=== PATIENT | female | born 1950 | race African-American/Black ===

== ENCOUNTER → 2017-05-08 | Outpatient (CLI) | payer MEDICARE ==
--- NOTE | 2017-05-09 11:26 | MM ---
Reason for exam: screening (asymptomatic). Last mammogram was performed 1 year and 2 months ago. History: Patient is postmenopausal and had first child at age 34. Physical Findings: A clinical breast exam by your physician is recommended on an annual basis and results should be correlated with mammographic findings. MG 3D Screening Mammo W/Cad Bilateral CC and MLO view(s) were taken. Prior study comparison: March 22, 2016, bilateral MG 3d screening mammo w/cad. January 28, 2015, bilateral MG screening mammo w CAD. There are scattered fibroglandular densities. Finding: There is a 9 mm mass in the upper outer quadrant, middle depth of the left breast. ASSESSMENT: Incomplete: need additional imaging evaluation, BI-RAD 0 RECOMMENDATION: Special view mammogram of the left breast. If lesion persists on supplemental views, image directed ultrasound is recommended. [facility] will attempt to contact patient to return for supplemental views and ultrasound if indicated.
== END | disposition home or self-care (01) ==
LOC: RADMAMWWP 10:10
PROVIDERS: ATTEND Internal Medicine
DX: Z12.31 Encounter for screening mammogram for malignant neoplasm of breast (principal)
CPT/HCPCS: 77063; G0202

== ENCOUNTER → 2017-05-15 | Outpatient (CLI) | payer MEDICARE ==
--- NOTE | 2017-05-21 09:26 | MM ---
Reason for exam: additional evaluation requested from abnormal screening. Last mammogram was performed less than 1 month ago. History: Patient is postmenopausal and had first child at age 34. Physical Findings: Nurse did not find any significant physical abnormalities on exam. MG 3D Work Up W/Cad LT CC and MLO view(s) were taken of the left breast. Prior study comparison: May 08, 2017, bilateral MG 3d screening mammo w/cad. March 22, 2016, bilateral MG 3d screening mammo w/cad. The breast tissue is heterogeneously dense. This may lower the sensitivity of mammography. Finding: There is a persistent 5 mm transverse, equal density (isodense), circumscribed oval mass located 7 cm from the nipple in the upper outer quadrant, middle position of the left breast partially disperses. These results were verbally communicated with the patient and result sheet given to the patient on 05/15/17. ASSESSMENT: Probably benign, BI-RAD 3 RECOMMENDATION: Ultrasound of the left breast.
--- NOTE | 2017-05-21 09:29 | USB ---
Reason for exam: additional evaluation requested from abnormal screening. History: Patient is postmenopausal and had first child at age 34. US Breast Workup Limited LT Left breast ultrasound demonstrates no cystic or solid lesion seen. These results were verbally communicated with the patient and result sheet given to the patient on 05/15/17. ASSESSMENT: Negative, BI-RAD 1 RECOMMENDATION: Surgical consultation and stereotactic core biopsy of the left breast. (new left breast nodule 12 o'clock) Called Dr. Cardona with mammographic findings and will need follow up appointment after biopsy. Left biopsy scheduled for 05/22/17 at 2:20. PRELIMINARY REPORT CALLED AND FAXED TO DR. CARDONA ON 05/21/17 /TMP.
== END | disposition home or self-care (01) ==
LOC: RADMAMWWP 08:11
PROVIDERS: ATTEND Internal Medicine
DX: R92.8 Other abnormal and inconclusive findings on diagnostic imaging of breast (principal)
CPT/HCPCS: 76642; G0206; G0279

== ENCOUNTER 2017-05-17 11:01 | Day surgery (SDC) | payer MEDICARE ==
[2017-05-15 10:22] VITALS: BMI 30.9
[~2017-05-17 11:01] MED LIST: LACTATED RINGERS 1,000 ML IV SCH
[2017-05-17 12:55] VITALS: TEMP 98.9
[2017-05-17] MEDS ORDERED: LIDOCAINE 1% 20 ML VIAL (10MG/ML) FOR IV START INTRADERMA ONE (13:08)
[2017-05-17] MEDS ORDERED: PROPOFOL 10 MG/ML 20 ML VIAL IV ONE (13:48)
--- NOTE | 2017-05-17 14:05 | P.PCN ---
Date of Procedure: 05/17/17 Preoperative Diagnosis: Postoperative Diagnosis: Procedure(s) Performed: BRIEF HISTORY: Patient is a 67-year-old pleasant female, scheduled for an elective colonoscopy as a part of screening for colorectal neoplasia. PROCEDURE PERFORMED: Colonoscopy with snare polypectomy.. PREOPERATIVE DIAGNOSIS: Screening for colon cancer. IV sedation per Anesthesia. PROCEDURE: After informed consent was obtained, the patient, was brought into the endoscopy unit. IV sedation was administered by Anesthesia under continuous monitoring. Digital rectal examination was normal. Initially the Olympus CF- 160 flexible video colonoscope was then inserted in the rectum, gradually advanced into the cecum without any difficulty. Careful examination was performed as the scope was gradually being withdrawn. Ileocecal valve and the appendiceal orifice were visualized and appeared normal. Prep was excellent. Mucosa of the cecum, ascending colon, transverse colon, descending colon, sigmoid colon, and rectum appeared normal. In the distal sigmoid colon there was a 1 segment of polyp removed by snare polypectomy. Retroflexion was performed in the rectum and no lesions were seen. The patient tolerated the procedure well. IMPRESSION: 1 cm distal sigmoid colon polyp status post polypectomy. Rest of the colon appeared normal. RECOMMENDATIONS: Findings of this examination were discussed with the patient as well as her family. She was advised to follow with the biopsy results. If the biopsy shows a tubular adenoma she can have a repeat colonoscopy in 5 years. Implants: Indications for Procedure: Operative Findings: Description of Procedure:
[2017-05-17 14:27] VITALS: BP 102/60; PULSE 67; RESP 16
== END 2017-05-17 14:51 | disposition home or self-care (01) ==
LOC: ORWHC2ENDO 11:01
PROVIDERS: ATTEND Internal Medicine Gastroenterology
DX: Z12.11 Encounter for screening for malignant neoplasm of colon (principal); K63.5 Polyp of colon; I10 Essential (primary) hypertension; Z88.1 Allergy status to other antibiotic agents; Z88.0 Allergy status to penicillin; Z88.6 Allergy status to analgesic agent
CPT/HCPCS: 88305; 45385; J2704

== ENCOUNTER → 2017-05-22 | Day surgery (SDC) | payer MEDICARE ==
[2017-05-22 13:09] VITALS: RESP 16; BMI 30.9
[2017-05-22 14:49] VITALS: BP 120/78; PULSE 75; TEMP 16
--- NOTE | 2017-05-22 15:27 | MM ---
Stereotactic Mammotome core biopsy left breast. HISTORY: Left breast density The density in question within the left breast were targeted by the undersigned. Procedure was performed by the undersigned. Informed consent was obtained and all of the patients questions were answered. The standard sterile technique was utilized and appropriate local anesthesia was obtained with 1% lidocaine. Mammotome probe was advanced and multiple core samples were obtained and sent to pathology for interpretation. Microclip marker was deployed at the site of biopsy. Post procedural mammogram demonstrates appropriate deployment of radiopaque clip marker. The patient tolerated the procedure well and left the department in stable condition. Pathology results are pending. IMPRESSION: Successful stereotactic core biopsy left breast with pathology results pending. Pathology Results: Malignant BREAST, LEFT, SITE A, CORE BIOPSY: LOW GRADE DCIS AND DETACHED FRAGMENTS OF PAPILLOMA WITH ATYPIA, FAVOR PAPILLOMA INVOLVED BY DCIS. BACKGROUND FIBROCYSTIC CHANGES INCLUDING FIBROADENOMA FORMATION/FIBROADENOMATOID HYPERPLASIA AND FOCAL ATYPICAL DUCTAL HYPERPLASIA (ADH). SEE SURGICAL PATHOLOGY CANCER CASE SUMMARY AND COMMENT. Recommendation Surgical consult of the left breast. GÓMEZ
== END ==
LOC: RADMAMWWP 12:35
PROVIDERS: ATTEND Internal Medicine
DX: D24.2 Benign neoplasm of left breast (principal); R92.8 Other abnormal and inconclusive findings on diagnostic imaging of breast
CPT/HCPCS: 88305; 88342; 88341; 19081; A4648; J2001

== ENCOUNTER → 2017-07-01 | Day surgery (SDC) | payer MEDICARE ==
[2017-06-25 14:10] VITALS: BMI 30.9
[~2017-07-01] MED LIST changes: +ALPRAZolam 0.25 MG TAB PO ONE; +BUPIVACAINE (PF) 0.25% 30 ML VIAL SQ ONE; +DEXAMETHASONE SOD PHOSPHATE 10 MG/ML 1 ML VIAL IV ONE; +HEPARIN SODIUM,PORCINE 5,000 UNIT/ML 1 ML VIAL SQ ONE; +HYDROcodone/APAP 5-325MG 1 EACH TAB PO PRN; +HYDROmorphone 0.5 MG/0.5 ML SYRINGE IVP PRN; +LACTATED RINGERS 1,000 ML IV ONE; +LIDOCAINE 1% 20 ML VIAL (10MG/ML) FOR IV START INTRADERMA PRN; +LIDOCAINE 1% INJ 10MG/ML (20 ML MDV) SQ ONE; +MIDAZOLAM 2 MG/2 ML VIAL IV PRN; +MIDAZOLAM 2 MG/2 ML VIAL ONE; +NALOXONE 0.4 MG/ML 1 ML VIAL IV PRN; +ONDANSETRON 4 MG/2 ML VIAL IVP ONE; +PROPOFOL 10 MG/ML 20 ML VIAL IV ONE; +Pre Op ABX Message 1 EACH MISC MISCELLANE ONE; +SCOPOLAMINE 1.5MG/72HR PATCH TRANSDERM ONE; +fentaNYL (PF) 50 MCG/ML 2 ML AMP ONE
[2017-07-01 11:01] VITALS: TEMP 96.8
--- NOTE | 2017-07-01 11:01 | P.OP ---
Date of Procedure: 07/01/17 Procedure(s) Performed: PREOPERATIVE DIAGNOSIS: Left breast cancer POSTOPERATIVE DIAGNOSIS: Same PROCEDURE: Left Breast wire localization lumpectomy with BioSorb placement SURGEON: Abilio EBL: Minimal ANESTHESIA: General COMPLICATIONS: None OPERATIVE PROCEDURE: Patient was placed on the operating room table in the supine position. The wire entrance site was then addressed. This was present at the 2:00 location. A curvilinear incision was made adjacent to the wire entrance site. I followed the wire down into the breast tissue. An adequate lumpectomy specimen then took place around the wire. Margins of 1.5-2 cm worth attempted to be achieved. The inferior margin was somewhat indurated and I did remove an additional new inferior margin. The initial lumpectomy specimen was marked on all 6 sides with the predetermined colors. The new inferior margin was also painted on the new margin inferiorly. A BioSorb 2 x 3 cm was placed in the lumpectomy site and sutured down using interrupted 3-0 Vicryl sutures. The clip was confirmed to be within the lumpectomy specimen by radiology. The subcutaneous tissues were closed using 3-0 Vicryl sutures. The skin was closed using a running 4-0 Monocryl stitch. Steri-Strips and sterile dressings were applied. DISPOSITION: Stable to recovery room
[2017-07-01 11:21] VITALS: RESP 18
[2017-07-01 12:38] VITALS: BP 117/74; PULSE 62
--- NOTE | 2017-07-01 13:01 | MM ---
EXAMINATION TYPE: MG pre op needle loc LT, MG surgical specimen LT DATE OF EXAM: 07/01/2017 COMPARISON: 05/22/2017 CLINICAL HISTORY: Surgical excision of a high-risk lesion in the left breast with request for needle localization. TECHNIQUE: Needle localization with wire placement and surgical excision of area of concern in the left breast. FINDINGS: The procedure of needle localization with wire placement and than surgical excision was explained to the patient. Benefits, alternatives, and risks were discussed. An informed consent was then obtained. The shortest pathway for procedure was chosen. Shortest pathway was CC from above approach. The overlying skin was prepped and draped in usual sterile fashion. Lidocaine buffered with bicarbonate was used as anesthetic into the skin and subcutaneous tissue up to the level of area of concern (biopsy marker clip and density). A 7 cm needle was used. It was placed via a CC from above approach under mammographic guidance. Subsequent 90 degrees mammogram show the needle to be in satisfactory position relative to the targeted area. At this point, wire was placed and the needle was withdrawn. The wire was fixed to patient's skin. Images were marked for surgeon. The patient tolerated the procedure well without any immediate complication. The patient was kept in the radiology department for short stay after the procedure and then taken to surgery for surgical excision. Targeted density and biopsy marker clip and wire are identified in specimen mammogram. The patient was kept in hospital for short stay after the procedure and then discharged home in stable condition. IMPRESSION: Successful, uncomplicated needle localization with wire placement and surgical excision of targeted density and biopsy marker clip with incidental note of calcifications in the left breast, full pathology results to follow. Pathology Results: High Risk A. BREAST, LEFT, LUMPECTOMY: FOCAL ATYPICAL DUCTAL HYPERPLASIA (ADH). FIBROCYSTIC CHANGES INCLUDING FIBROADENOMA FORMATION/FIBROADENOMATOID HYPERPLASIA, FIBROSIS, CYSTS, USUAL TYPE DUCTAL HYPERPLASIA AND CALCIFICATIONS. PREVIOUS BIOPSY SITE. NO RESIDUAL DCIS IDENTIFIED. SEE NOTE. B. BREAST, LEFT, NEW INFERIOR MARGIN, EXCISION: BENIGN BREAST WITH FIBROCYSTIC CHANGES INCLUDING FIBROADENOMA FORMATION/FIBROADENOMATOID HYPERPLASIA, FIBROSIS , CYSTS, USUAL TYPE DUCTAL HYPERPLASIA AND APOCRINE METAPLASIA. Recommendation Surgical consult of the left breast. GÓMEZ
== END | disposition home or self-care (01) ==
LOC: OR 06:35
PROVIDERS: ATTEND Surgery
DX: D24.2 Benign neoplasm of left breast (principal); N60.12 Diffuse cystic mastopathy of left breast; N60.82 Other benign mammary dysplasias of left breast; R92.0 Mammographic microcalcification found on diagnostic imaging of breast; E21.3 Hyperparathyroidism, unspecified; K21.9 Gastro-esophageal reflux disease without esophagitis; M19.90 Unspecified osteoarthritis, unspecified site; I10 Essential (primary) hypertension; M41.9 Scoliosis, unspecified; Z79.899 Other long term (current) drug therapy; Z88.6 Allergy status to analgesic agent; Z88.1 Allergy status to other antibiotic agents; Z88.0 Allergy status to penicillin; Z90.710 Acquired absence of both cervix and uterus
CPT/HCPCS: 19301; 19281; 15777; 81025; 88342; 88307; 76098; A4648; J2250; J1644; J1100; J2405; J2001; J3010; J2704

== ENCOUNTER → 2017-09-19 | Outpatient (CLI) | payer MEDICARE ==
--- NOTE | 2017-09-20 07:57 | BD ---
EXAMINATION TYPE: MG DEXA axial skeleton. DATE OF EXAM: 09/19/2017 COMPARISON: NONE CLINICAL HISTORY: Osteopenia. Screening exam. Height: 67 Weight: 197.1 FRAX RISK QUESTIONS: Alcohol (3 or more units per day): no Family History (Parent hip fracture): no Glucocorticoids (More than 3mos): no (Ex: prednisone, prednisolone, methylprednisolone, dexamethasone, and hydrocortisone). History of Fracture in Adulthood: yes Secondary Osteoporosis: 1. Type 1 Diabetes: no 2. Hyperthyroidism: no 3. Menopause before 45: yes 4. Malnutrition: no 5. Chronic liver disease: no Rheumatoid Arthritis: no Current Tobacco Use: no RISK FACTORS HISTORY OF: Hip Fracture (Right/Left): no Spine Fracture: no History of Wrist Fracture: no Surgery to Spine/Hip(right/left)/Wrist (right/left): no Family History of Osteoporosis: no Active: yes Diet low in dairy products/other sources of calcium: yes Postmenopausal woman: age 38 Lost more than 2 inches in height since high school: no Frequent falls: no Poor Health: no Hyperparathyroidism: no Adrenal Insufficiency: no MEDICATIONS: high bp meds, post breast cancer med Additional History: EXAM MEASUREMENTS: Bone mineral densitometry was performed using the [employer]item[employer]her System. Bone mineral density as measured about the Lumbar spine is: ----- L1-L4(G/cm2): 1.079 T Score Values are as follows: ----- L2: -1.4 ----- L3: -1.2 ----- L4: -0.1 ----- L1-L4: -0.8 Bone mineral density has: decreased -1.5 % since study of: 03.22.2016 Bone mineral density about the R hip (g/cm2): 0.836 Bone mineral density about the L hip (g/cm2): 0.772 T Score values are as follows: -----R Neck: -1.5 -----L Neck: -1.9 -----R Total: -1.6 -----L Total: -1.8 Bone mineral density has: increased 1.1 % since study of: 03.22.2016 IMPRESSION: Osteopenia (T Score between -2.5 and -1 ) as noted by T score values both hips and the lumbar spine. There is slightly increased risk of fracture and the patient may be considered for treatment. Re-Screen 2-5 years. NOTE: T-SCORE=SD OF THE YOUNG ADULT MEAN.
== END | disposition home or self-care (01) ==
LOC: RADBDWWP 15:46
PROVIDERS: ATTEND Internal Medicine Hematology & Oncology
DX: C50.412 Malignant neoplasm of upper-outer quadrant of left female breast (principal); M85.851 Other specified disorders of bone density and structure, right thigh; M85.852 Other specified disorders of bone density and structure, left thigh; M85.88 Other specified disorders of bone density and structure, other site; Z79.890 Hormone replacement therapy
CPT/HCPCS: 77080

== ENCOUNTER → 2018-04-28 | Outpatient (CLI) | payer MEDICARE ==
--- NOTE | 2018-04-29 15:08 | MM ---
Reason for exam: additional evaluation requested from prior study. Last mammogram was performed 11 months ago. History: Patient is postmenopausal, has history of breast cancer at age 67, has history of high-risk lesion on a previous biopsy at age 67, and had first child at age 34. High risk MG pre op needle loc LT of the left breast, July 01, 2017. Malignant MG stereo VAD BX LT of the left breast, May 22, 2017. Took estrogen for 5 years beginning at age 39. Physical Findings: Nurse did not find any significant physical abnormalities on exam. MG 3D Diag Mammo W/Cad MIKE Bilateral CC and MLO view(s) were taken. Prior study comparison: May 15, 2017, left breast MG 3d work up w/cad LT. May 08, 2017, bilateral MG 3d screening mammo w/cad. There are scattered fibroglandular densities. There is a mass and clips in the left breast middle position consistent withe known lumpectomy changes at area of prior concern. No new dominant lesion. These results were verbally communicated with the patient and result sheet given to the patient on 04/28/18. ASSESSMENT: Benign, BI-RAD 2 RECOMMENDATION: Follow-up diagnostic mammogram of both breasts in 1 year.
== END | disposition home or self-care (01) ==
LOC: RADMAMWWP 10:12
PROVIDERS: ATTEND Surgery
DX: R92.8 Other abnormal and inconclusive findings on diagnostic imaging of breast (principal); Z85.3 Personal history of malignant neoplasm of breast
CPT/HCPCS: 77066; G0279; 77062

== ENCOUNTER → 2019-03-06 | Outpatient (CLI) | payer MEDICARE ==
--- NOTE | 2019-03-06 18:09 | MR ---
EXAMINATION TYPE: MR brain wo/w con DATE OF EXAM: 03/06/2019 COMPARISON: NONE HISTORY: 68-year-old female with Parageusia TECHNIQUE: Multiplanar, multisequence images of the brain and brainstem were acquired before and aft er administration of 9.5 mL IV Gadavist. Diffusion weighted imaging is performed. FINDINGS: No evidence for acute infarction, hemorrhage, mass, mass effect, midline shift, herniation, effacemen t of basal cisterns, or extra-axial fluid collection. The ventricles and sulci are age-appropriate. Major intracranial flow voids are intact. T2/FLAIR weighted sequences show normal common age-related mild periventricular white white matter br ight signal. Midline structures demonstrate normal morphology. The craniocervical junction is normal . Post contrast images demonstrate no evidence of pathologic enhancement. Dural venous sinuses are pat ent. There is mild pansinus mucosal thickening. The globes appear intact. IMPRESSION: 1. No acute intracranial abnormality seen. Minimal age-related periventricular white matter change. N o enhancing lesions. 2. Mild chronic pansinus disease.
== END | disposition home or self-care (01) ==
LOC: RADMRIMAIN 10:32
PROVIDERS: ATTEND Otolaryngology
DX: R90.89 Other abnormal findings on diagnostic imaging of central nervous system (principal); R43.2 Parageusia
CPT/HCPCS: 70553; A9585

== ENCOUNTER → 2019-05-14 | Outpatient (CLI) | payer MEDICARE ==
--- NOTE | 2019-05-14 09:19 | MM ---
Reason for exam: additional evaluation requested from prior study. Last mammogram was performed 1 year and 1 month ago. History: Patient is postmenopausal, has history of breast cancer at age 67, has history of high-risk lesion on a previous biopsy at age 67, and had first child at age 34. High risk MG pre op needle loc LT of the left breast, July 01, 2017. Malignant MG stereo VAD BX LT of the left breast, May 22, 2017. Took estrogen for 5 years beginning at age 39. Physical Findings: Nurse did not find any significant physical abnormalities on exam. MG 3D Diag Mammo W/Cad MIKE Bilateral CC and MLO view(s) were taken. Prior study comparison: April 28, 2018, bilateral MG 3d diag mammo w/cad MIKE. May 15, 2017, left breast MG 3d work up w/cad LT. The breast tissue is heterogeneously dense. This may lower the sensitivity of mammography. No suspicious abnormality. Left post therapy change. No significant new findings when compared with previous films. These results were verbally communicated with the patient and result sheet given to the patient on 05/14/19. ASSESSMENT: Benign, BI-RAD 2 RECOMMENDATION: Follow-up diagnostic mammogram of both breasts in 1 year.
== END | disposition home or self-care (01) ==
LOC: RADMAMWWP 08:02
PROVIDERS: ATTEND Internal Medicine
DX: R92.8 Other abnormal and inconclusive findings on diagnostic imaging of breast (principal); Z85.3 Personal history of malignant neoplasm of breast
CPT/HCPCS: 77066; G0279; 77062

== ENCOUNTER → 2020-05-19 | Outpatient (CLI) | payer MEDICARE ==
--- NOTE | 2020-05-20 09:44 | MM ---
Reason for exam: additional evaluation requested from prior study. Last mammogram was performed 1 year ago. History: Patient is postmenopausal, has history of breast cancer at age 67, has history of high-risk lesion on a previous biopsy at age 67, and had first child at age 34. High risk MG pre op needle loc LT of the left breast, July 01, 2017. Malignant MG stereo VAD BX LT of the left breast, May 22, 2017. Lumpectomy of the left breast, 2016. Took estrogen for 5 years beginning at age 39. Physical Findings: Nurse did not find any significant physical abnormalities on exam. MG 3D Diag Mammo W/Cad MIKE Bilateral CC and MLO view(s) were taken. XCCL view(s) were taken of the right breast. Prior study comparison: May 14, 2019, bilateral MG 3d diag mammo w/cad MIKE. April 28, 2018, bilateral MG 3d diag mammo w/cad MIKE. The breast tissue is heterogeneously dense. This may lower the sensitivity of mammography. Stable post lumpectomy changes left breast. No significant new findings when compared with previous films. These results were verbally communicated with the patient and result sheet given to the patient on 05/19/20. ASSESSMENT: Benign, BI-RAD 2 RECOMMENDATION: Follow-up diagnostic mammogram of both breasts in 1 year.
== END | disposition home or self-care (01) ==
LOC: RADMAMWWP 14:42
PROVIDERS: ATTEND Internal Medicine
DX: Z08 Encounter for follow-up examination after completed treatment for malignant neoplasm (principal); Z85.3 Personal history of malignant neoplasm of breast
CPT/HCPCS: 77066; G0279; 77062

== ENCOUNTER → 2021-06-08 | Outpatient (CLI) | payer MEDICARE ==
--- NOTE | 2021-06-09 10:13 | MM ---
Reason for exam: additional evaluation requested from prior study. Last mammogram was performed 1 year and 1 month ago. History: Patient is postmenopausal, has history of breast cancer at age 67, has history of high-risk lesion on a previous biopsy at age 67, and had first child at age 34. High risk MG pre op needle loc LT of the left breast, July 01, 2017. Malignant MG stereo VAD BX LT of the left breast, May 22, 2017. Lumpectomy of the left breast, 2016. Took estrogen for 5 years beginning at age 39. Physical Findings: Nurse did not find any significant physical abnormalities on exam. MG 3D Diag Mammo W/Cad MIKE Bilateral CC, MLO, and XCCL view(s) were taken. Prior study comparison: May 19, 2020, bilateral MG 3d diag mammo w/cad MIKE. May 14, 2019, bilateral MG 3d diag mammo w/cad MIKE. April 28, 2018, bilateral MG 3d diag mammo w/cad MIKE. There are scattered fibroglandular densities. Post surgical change left breast with biozorb device. No significant new findings when compared with previous films. These results were verbally communicated with the patient and result sheet given to the patient on 06/08/21. ASSESSMENT: Benign, BI-RAD 2 RECOMMENDATION: Routine screening mammogram of both breasts in 1 year.
== END | disposition home or self-care (01) ==
LOC: RADMAMWWP 14:52
PROVIDERS: ATTEND Internal Medicine
DX: D05.12 Intraductal carcinoma in situ of left breast (principal)
CPT/HCPCS: 77066; G0279; 77062

== ENCOUNTER → 2021-08-17 | Outpatient (CLI) | payer MEDICARE ==
--- NOTE | 2021-08-17 13:50 | BD ---
EXAMINATION TYPE: Axial Bone Density DATE OF EXAM: 08/17/2021 COMPARISON: 09.19.2017 CLINICAL HISTORY: 71 YR OLD FEMALE...ICD-10 CODE: M89.9 BONE DISORDER Height: 66 Weight: 222 FRAX RISK QUESTIONS: History of Fracture in Adulthood: YES Secondary Osteoporosis: YES 3. Menopause before 45: YES RISK FACTORS HISTORY OF: HX OF SHOULDER FX AT AGE 66 Postmenopausal woman: YES, AT AGE 42YRS OLD, Take estrogen and/or progesterone medications: YES, FOR ABOUT 5 YRS, NONE NOW Lost more than 2 inches in height since high school: YES Hyperparathyroidism: NO Adrenal Insufficiency: NO MEDICATIONS: Additional Medications: BP MEDS, LT BREAST HIGH RISK LUMPECTOMY, STEROIDS IN EYE, VIT D Additional History: LT BREAST LUMPECTOMY, HYPERTENSION, EXAM MEASUREMENTS: Bone mineral densitometry was performed using the [employer]met System. Bone mineral density as measured about the Lumbar spine is: ----- L1-L4(G/cm2): 1.121 T Score Values are as follows: ----- L1: -0.5 ----- L2: -0.9 ----- L3: -1.3 ----- L4: 0.4 ----- L1-L4: -0.5 Bone mineral density has: Increased 3.6% since study of: 09.19.2017 Bone mineral density about the R hip (g/cm2): 0.796 Bone mineral density about the L hip (g/cm2): 0.771 T Score values are as follows: -----R Neck: -1.6 -----L Neck: -2.3 -----R Total: -1.7 -----L Total: -1.9 Bone mineral density has: Decreased -1.3% since study of: 09.19.2017 FRAX%s: THERE IS A 9.1% CHANCE FOR A MAJOR OSTEOPOROTIC FX AND A 1.9% FOR HIP......PROBABILITY FO R FX IN 10 YRS TIME IMPRESSION: Osteopenia NOTE: T-SCORE=SD OF THE YOUNG ADULT MEAN.
== END | disposition home or self-care (01) ==
LOC: RADBDWWP 09:54
PROVIDERS: ATTEND Internal Medicine
DX: M85.80 Other specified disorders of bone density and structure, unspecified site (principal)
CPT/HCPCS: 77080

== ENCOUNTER → 2021-10-02 | Outpatient (CLI) | payer MEDICARE ==
--- NOTE | 2021-10-02 14:51 | US ---
EXAMINATION TYPE: US thyroid st tissue head/neck DATE OF EXAM: 10/02/2021 COMPARISON: NONE CLINICAL HISTORY: E21.0 hyperparathyroidism. GLAND SIZE: Right Lobe: 4.5 x 1.6 x 2.2 cm Overall Parenchyma: heterogenous Left Lobe: 4.2 x 1.7 x 2.1 cm Overall Parenchyma: heterogeneous Isthmus Thickness: 0.38 cm NODULES RIGHT: # of nodules measured on right: 0 LEFT: # of nodules measured on left: 1 1. 2.6 X 1.2 x 1.7 cm, mid medial, solid or almost completely solid, hypoechoic nodule, which is wi glenys than tall, with smooth margins, without echogenic foci. Area possibly located inferior to left thyroid measuring 3.4 x 1.1 x 1.3 cm; difficult to ascerta in whether area is within the thyroid or not ISTHMUS: # of nodules measured in the isthmus: 0 Bilateral neck scanned, no evidence of lymphadenopathy. Heterogeneous normal-sized thyroid with exterior 3.4 x 1.1 x 1.3 cm hypoechoic area or lesion could r eflect large parathyroid adenoma. IMPRESSION: As above. Consider correlating with nuclear medicine parathyroid scan to confirm.
== END | disposition home or self-care (01) ==
LOC: RADUSWWP 14:12
PROVIDERS: ATTEND Internal Medicine Endocrinology, Diabetes & Metabolism
DX: E21.0 Primary hyperparathyroidism (principal)
CPT/HCPCS: 76536

== ENCOUNTER → 2022-05-04 | Outpatient (CLI) | payer MEDICARE ==
--- NOTE | 2022-05-04 12:22 | XR ---
Left knee HISTORY: Left knee pain 3 views the left knee Chondrocalcinosis is noted along the menisci. Marginal spurring is present. Bone mineralization is re duced. Alignment is maintained. There is no fracture or dislocation. Suprapatellar increased density consistent with joint effusion. Loss of joint space greatest at the patellofemoral joint also present at the medial compartment. IMPRESSION: Consider crystal deposition arthropathy, osteoarthritis
== END | disposition home or self-care (01) ==
LOC: RADXRMAIN 11:32
PROVIDERS: ATTEND Internal Medicine
DX: M25.562 Pain in left knee (principal)

== ENCOUNTER → 2022-06-29 | Outpatient (CLI) | payer MEDICARE ==
--- NOTE | 2022-07-02 09:21 | MM ---
Reason for Exam: Hx of breast cancer, conservation therapy. Last mammogram was performed 1 year(s) and 1 month(s) ago. Patient History: Menarche at age 16. First Full-Term at age 34. Late child-bearing (after 30). Hysterectomy at age 39. Postmenopausal. Patient has history of breast feeding. Breast cancer, left, age 67. Estrogen for 5 years from age 39 until age 44. 2017, Lumpectomy on the Left side. 07/01/2017, High risk Core Biopsy on the left side. 05/22/2017, Malignant Core Biopsy on the left side. Prior Study Comparison: 04/03/1994 Screening Mammogram, Unknown. 06/23/2010 Right Diagnostic Mammogram, [facility]. 12/14/2013 Bilateral Screening Mammogram, [facility]. 05/08/2017 Bilateral Screening Mammogram, [facility]. 05/15/2017 Left Diagnostic Mammogram, [facility]. 05/15/2017 Left Diagnostic Ultrasound, [facility]. 04/28/2018 Bilateral Diagnostic Mammogram, [facility]. 05/14/2019 Bilateral Diagnostic Mammogram, [facility]. 05/19/2020 Bilateral Diagnostic Mammogram, [facility]. 06/08/2021 Bilateral Diagnostic Mammogram, [facility]. Tissue Density: The breast tissue is heterogeneously dense. This may lower the sensitivity of mammography. Findings: Analyzed By CAD. Spot compression with cc and ML with additional ML, MLO and CC images were performed. There is suspicious grouped calcifications seen in the right breast inferior lateral quadrant which are new from prior. Overall Assessment: Suspicious, BI-RAD 4 Management: Stereotactic Core Biopsy of the right breast. Stereotactic core biopsy of the lower outer quadrant of the right breast is recommended for grouped calcifications. A clinical breast exam by your physician is recommended on an annual basis and results should be correlated with mammographic findings. This exam should not preclude additional follow-up of suspicious palpable abnormalities. Results were given to the patient verbally at the time of exam. Electronically signed and approved by: Orlando Nesbitt DO
== END | disposition home or self-care (01) ==
LOC: RADMAMWWP 13:04
PROVIDERS: ATTEND Family Medicine
DX: D05.12 Intraductal carcinoma in situ of left breast (principal)
CPT/HCPCS: 77066; G0279; 77062

== ENCOUNTER → 2022-07-09 | Outpatient (CLI) | payer MEDICARE ==
[2022-07-10 00:42] LABS: African American GFR (CKD) 107.9 (60.0-200.0); Albumin/Globulin Ratio 1.29 (1.60-3.17); Anion Gap 9.4 mmol/L (10.00-18.00); BUN/Creat Ratio 26.38 Ratio (12.00-20.00); Blood Urea Nitrogen 14.8 mg/dL (9.0-27.0); Carbon Dioxide 24.2 mmol/L (20.0-27.5); Globulin 3.1 g/dL (1.6-3.3); Non-African American GFR(CKD) 93.1 (60.0-200.0); Potassium 4.1 mmol/L (3.5-5.5); Total Bilirubin 0.6 mg/dL (0.30-1.20); Total Protein 7.1 g/dL (6.2-8.2)
== END | disposition home or self-care (01) ==
LOC: LABWHC1 11:56
PROVIDERS: ATTEND Internal Medicine Endocrinology, Diabetes & Metabolism
DX: E21.0 Primary hyperparathyroidism (principal)
CPT/HCPCS: 36415; 80053; 82306; 83970

== ENCOUNTER 2022-08-20 06:45 | Day surgery (SDC) | payer MEDICARE ==
[~2022-08-20 06:45] MED LIST changes: +ACETAMINOPHEN TAB 500 MG TAB PO PRN; -ALPRAZolam 0.25 MG TAB PO ONE; -BUPIVACAINE (PF) 0.25% 30 ML VIAL SQ ONE; -DEXAMETHASONE SOD PHOSPHATE 10 MG/ML 1 ML VIAL IV ONE; -HEPARIN SODIUM,PORCINE 5,000 UNIT/ML 1 ML VIAL SQ ONE; +HEPARIN SODIUM,PORCINE/PF 5,000 UNIT/0.5 ML SYRINGE SQ PRN; -HYDROcodone/APAP 5-325MG 1 EACH TAB PO PRN; -HYDROmorphone 0.5 MG/0.5 ML SYRINGE IVP PRN; -LACTATED RINGERS 1,000 ML IV ONE; -LACTATED RINGERS 1,000 ML IV SCH; -LIDOCAINE 1% 20 ML VIAL (10MG/ML) FOR IV START INTRADERMA PRN; -LIDOCAINE 1% INJ 10MG/ML (20 ML MDV) SQ ONE; -MIDAZOLAM 2 MG/2 ML VIAL IV PRN; -MIDAZOLAM 2 MG/2 ML VIAL ONE; -NALOXONE 0.4 MG/ML 1 ML VIAL IV PRN; -ONDANSETRON 4 MG/2 ML VIAL IVP ONE; -PROPOFOL 10 MG/ML 20 ML VIAL IV ONE; -SCOPOLAMINE 1.5MG/72HR PATCH TRANSDERM ONE; -fentaNYL (PF) 50 MCG/ML 2 ML AMP ONE
[2022-08-20] MEDS ORDERED: HYDROmorphone 0.5 MG/0.5 ML SYRINGE IVP PRN (07:00)
[2022-08-20] MEDS ORDERED: MIDAZOLAM 2 MG/2 ML VIAL IV PRN (07:00)
[2022-08-20] MEDS ORDERED: LACTATED RINGERS 1,000 ML IV SCH (07:00)
[2022-08-20] MEDS ORDERED: DEXAMETHASONE SOD PHOSPHATE 4 MG/ML 1 ML VIAL IV ONE (07:00)
[2022-08-20] MEDS ORDERED: ONDANSETRON 4 MG/2 ML VIAL IVP ONE (07:00)
[2022-08-20] MEDS ORDERED: ALPRAZolam 0.25 MG TAB ONE (07:17)
[2022-08-20] MEDS ORDERED: ALPRAZolam 0.25 MG TAB PO ONE (07:30)
[2022-08-20 07:37] VITALS: RESP 16
[2022-08-20] MEDS ORDERED: LIDOCAINE 1% INJ 10MG/ML (30 ML VIAL-PF) SQ ONE (08:16)
[2022-08-20] MEDS ORDERED: LIDOCAINE 2% INJ 20 MG/ML (2 ML VIAL) ONE (08:56)
[2022-08-20] MEDS ORDERED: HYDROmorphone (PF) 1 MG/ML ONE (08:56)
[2022-08-20] MEDS ORDERED: PROPOFOL 10 MG/ML 20 ML VIAL IV ONE (08:56)
[2022-08-20] MEDS ORDERED: fentaNYL (PF) 50 MCG/ML 2 ML AMP ONE (08:56)
[2022-08-20] MEDS ORDERED: BUPIVACAIN-EPI 0.25%-1:200,000 30 ML VIAL SQ ONE ×2 (08:58→09:35)
[2022-08-20] MEDS ORDERED: SODIUM CHLORIDE 0.9% 50 ML with ceFAZolin 2,000 MG IV ONE ×2 (08:59)
[2022-08-20] MEDS ORDERED: NALOXONE 0.4 MG/ML 1 ML VIAL IV PRN (09:42)
[2022-08-20] MEDS ORDERED: traMADol 50 MG TAB PO PRN (09:42)
--- NOTE | 2022-08-20 10:00 | P.OP ---
Date of Procedure: 08/20/22 Procedure(s) Performed: PREOPERATIVE DIAGNOSIS: Right breast cancer POSTOPERATIVE DIAGNOSIS: Same PROCEDURE: Right Breast wire localization lumpectomy SURGEON: Abilio EBL: Minimal ANESTHESIA: General COMPLICATIONS: None OPERATIVE PROCEDURE: Patient was placed on the operating room table in the supine position. The wire entrance site was then addressed. This was present at the 7:00 location. A curvilinear incision was made adjacent to the wire entrance site. I followed the wire down into the breast tissue. An adequate lumpectomy specimen then took place around the wire. Margins of 1.5-2 cm worth attempted to be achieved. Palpation of the specimen suggested that the lateral margin was somewhat close. I took an additional margin laterally and this margin was painted the appropriate color on the new margin side. The initial specimen was also painted the appropriate 6 colors. Clips were used to identify the lumpectomy cavity. The clip was confirmed to be within the lumpectomy specimen by radiology. The subcutaneous tissues were closed using 3-0 Vicryl sutures. The skin was closed using a running 4-0 Monocryl stitch. Skin glue was then applied. DISPOSITION: Stable to recovery room
[2022-08-20 10:01] VITALS: TEMP 97.8
--- NOTE | 2022-08-20 11:28 | MM ---
Electronically signed and approved by: Orlando Nesbitt, DO
[2022-08-20 11:46] VITALS: BP 136/75; PULSE 67
== END 2022-08-20 11:59 | disposition home or self-care (01) ==
LOC: OR 06:45
PROVIDERS: ATTEND Surgery
DX: C50.911 Malignant neoplasm of unspecified site of right female breast (principal); Z17.0 Estrogen receptor positive status [ER+]; K21.9 Gastro-esophageal reflux disease without esophagitis; Z98.890 Other specified postprocedural states; E21.3 Hyperparathyroidism, unspecified; Z88.0 Allergy status to penicillin; Z88.1 Allergy status to other antibiotic agents; Z88.6 Allergy status to analgesic agent; Z79.810 Long term (current) use of selective estrogen receptor modulators (SERMs); Z79.811 Long term (current) use of aromatase inhibitors; Z79.899 Other long term (current) drug therapy; Z79.83 Long term (current) use of bisphosphonates; Z90.49 Acquired absence of other specified parts of digestive tract; Z82.49 Family history of ischemic heart disease and other diseases of the circulatory system; Z80.0 Family history of malignant neoplasm of digestive organs; Z80.1 Family history of malignant neoplasm of trachea, bronchus and lung
CPT/HCPCS: 19301; 76098; 19281; C1819; J1100; J2405; J0690; J2001 ×2; J3010; J1170; J2704; J1644

== ENCOUNTER 2022-10-08 08:39 | Day surgery (SDC) | payer MEDICARE ==
--- NOTE | 2022-10-08 08:24 | P.GSHP ---
History of Present Illness H&P Date: 10/08/22 Chief Complaint: Right breast cancer 72-year-old female here today for right breast re-lumpectomy. 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 Recent lumpectomy had a positive margin inferiorly for DCIS. Patient doing well postoperatively. As plans for adjuvant radiation. Has declined adjuvant hormonal therapy apparently. Her case was discussed with oncology and we have decided to not proceed with sentinel lymph node biopsy at this time. Past Medical History Past Medical History: Cancer, Hypertension Additional Past Medical History / Comment(s): varicose vein, breast cancer, polio-RUE weakness, History of Any Multi-Drug Resistant Organisms: C-DIFF Date of last positivie culture/infection: 08/04/17 MDRO Source:: stool Past Surgical History: Breast Surgery, Hysterectomy Additional Past Surgical History / Comment(s): lipoma removed from left arm, left breast lumpectomy.. Hyerparathyroid- gland removed December 2021. Bilat Cataract 2021 lasik surg Past Anesthesia/Blood Transfusion Reactions: No Reported Reaction Smoking Status: Never smoker - Past Family History Mother Family Medical History: Cancer Additional Family Medical History / Comment(s): rectal and lung Medications and Allergies Home Medications Medication Instructions Recorded Confirmed Type amLODIPine [Norvasc] 10 mg PO DAILY 09/04/15 10/03/22 History lisinopriL [Zestril] 40 mg PO DAILY 09/04/15 10/03/22 History Vitamin E (Dl,Tocopheryl Acet) 1,000 unit PO Q48H 10/21/15 10/03/22 History [Vitamin E] cloNIDine HCL [Catapres] 0.2 mg PO HS 10/21/15 10/03/22 History atenoloL [Tenormin] 50 mg PO DAILY 05/15/17 10/03/22 History cloNIDine HCL [Catapres] 0.1 mg PO DAILY@1500 08/04/17 10/03/22 History Ergocalciferol [Vitamin D2 (1250 1,250 mcg PO WE 08/16/22 10/03/22 History Mcg = [id number] Iu)] traMADol HCl [Ultram] 50 mg PO Q6H PRN #6 tab 08/20/22 10/03/22 Rx Allergies Allergy/AdvReac Type Severity Reaction Status Date / Time ciprofloxacin [From Cipro] Allergy Swelling Verified 10/03/22 15:33 ciprofloxacin HCl Allergy Swelling Verified 10/03/22 15:33 [From Cipro] naproxen sodium [From Aleve] Allergy Swelling Verified 10/03/22 15:33 Penicillins Allergy Swelling Verified 10/03/22 15:33 Surgical - Exam Physical exam: General: Well-developed, well-nourished HEENT: Normocephalic, sclerae nonicteric Abdomen: Nontender, nondistended Extremities: No edema Neuro: Alert and oriented Right breast incision clean and dry Assessment and Plan (1) Breast cancer Narrative/Plan: 72-year-old female with right breast cancer stage I. We'll proceed with right breast re-lumpectomy at this time. Risks of bleeding, infection, additional positive margins, seroma, pain, possible need for further surgery reviewed. She understands and wishes to proceed. Status: Chronic Priority: Low Code(s): C50.919 - MALIGNANT NEOPLASM OF UNSP SITE OF UNSPECIFIED FEMALE BREAST SNOMED Code(s): 262545866
[~2022-10-08 08:39] MED LIST changes: +DEXAMETHASONE SOD PHOSPHATE 4 MG/ML 1 ML VIAL IV ONE; +HYDROmorphone 0.5 MG/0.5 ML SYRINGE IVP PRN; +LIDOCAINE 1% (10MG/ML) FOR IV START INTRADERMA PRN; +MIDAZOLAM 2 MG/2 ML VIAL IV PRN; +ONDANSETRON 4 MG/2 ML VIAL IVP ONE
[2022-10-08] MEDS: LACTATED RINGERS 1,000 ML IV SCH ×2 (09:29→09:50)
[2022-10-08] MEDS ORDERED: PROPOFOL 10 MG/ML 20 ML VIAL IV ONE (10:40)
[2022-10-08] MEDS ORDERED: LIDOCAINE 2% INJ 20 MG/ML (2 ML VIAL) ONE (10:40)
[2022-10-08] MEDS ORDERED: fentaNYL (PF) 50 MCG/ML 2 ML AMP ONE (10:40)
[2022-10-08] MEDS ORDERED: SODIUM CHLORIDE 0.9% 50 ML with ceFAZolin 2,000 MG IV ONE ×2 (10:45)
[2022-10-08] MEDS ORDERED: BUPIVACAIN-EPI 0.25%-1:200,000 30 ML VIAL SQ ONE ×2 (10:57→11:31)
[2022-10-08] MEDS ORDERED: NALOXONE 0.4 MG/ML 1 ML VIAL IV PRN (11:44)
--- NOTE | 2022-10-08 11:49 | P.OP ---
Date of Procedure: 10/08/22 Procedure(s) Performed: PREOPERATIVE DIAGNOSIS: Right breast cancer POSTOPERATIVE DIAGNOSIS: Same PROCEDURE: Right breast re-lumpectomy SURGEON: Abilio EBL: 10 mL ANESTHESIA: Gen. COMPLICATIONS: None OPERATIVE PROCEDURE: Patient placed in the operative table in supine position. The right breast was prepped and draped sterilely. An elliptical incision was made encompassing the previous scar site. Dissection through the subcutaneous tissues took place using electrocautery. The previous lumpectomy site was reexcised focusing primarily on the inferior margin. We ended up removing more than just inferior margin however once the specimen was removed and all margins were painted the same color which was green. There was no palpable abnormalities. Specimen was passed off. This was sent to pathology. Operative site inspected for bleeding. None was seen. Subcutaneous tissues closed using 3-0 Vicryl sutures and skin closed using 4-0 Monocryl sutures. Skin glue was then applied. DISPOSITION: Stable to recovery room
[2022-10-08 11:52] VITALS: TEMP 96.8
[2022-10-08 12:37] VITALS: RESP 16
[2022-10-08 13:01] VITALS: BP 174/88; PULSE 71
== END 2022-10-08 13:21 | disposition home or self-care (01) ==
LOC: OR 08:39
PROVIDERS: ATTEND Surgery
DX: C50.911 Malignant neoplasm of unspecified site of right female breast (principal); Z85.3 Personal history of malignant neoplasm of breast; Z90.11 Acquired absence of right breast and nipple; I10 Essential (primary) hypertension; I83.90 Asymptomatic varicose veins of unspecified lower extremity; Z86.12 Personal history of poliomyelitis; Z86.19 Personal history of other infectious and parasitic diseases; Z16.24 Resistance to multiple antibiotics; Z98.41 Cataract extraction status, right eye; Z98.890 Other specified postprocedural states; Z80.1 Family history of malignant neoplasm of trachea, bronchus and lung; Z80.0 Family history of malignant neoplasm of digestive organs; Z79.899 Other long term (current) drug therapy; Z79.891 Long term (current) use of opiate analgesic; Z88.1 Allergy status to other antibiotic agents; Z88.6 Allergy status to analgesic agent; Z88.0 Allergy status to penicillin; E21.3 Hyperparathyroidism, unspecified; M19.90 Unspecified osteoarthritis, unspecified site; K21.9 Gastro-esophageal reflux disease without esophagitis; Z82.3 Family history of stroke; Z82.49 Family history of ischemic heart disease and other diseases of the circulatory system
CPT/HCPCS: 19301; J2250; J1100; J2405; J0690; J3010; J2704; J1644; J2001; 88307

== ENCOUNTER → 2023-07-02 | Outpatient (CLI) | payer MEDICARE ==
--- NOTE | 2023-07-02 12:54 | MM ---
Reason for Exam: Hx of breast cancer, conservation therapy. Last screening mammogram was performed 12 month(s) ago. Patient History: Menarche at age 16. First Full-Term at age 34. Late child-bearing (after 30). Hysterectomy at age 39. Postmenopausal. Patient has history of breast feeding. Breast cancer, left, age 67. Breast cancer, right, age 72. Breast cancer, right, age 72. Estrogen for 5 years from age 39 until age 44. 08/20/2022, Lumpectomy on the Right side. 08/20/2022, Malignant MG pre op needle loc RT on the right side. 07/09/2022, Malignant MG stereo VAD BX RT on the right side. 2016, Lumpectomy on the Left side. 07/01/2017, High risk Core Biopsy on the left side. 05/22/2017, Malignant Core Biopsy on the left side. Prior Study Comparison: 05/08/2017 Bilateral Screening Mammogram, [facility]. 05/14/2019 Bilateral Diagnostic Mammogram, [facility]. 06/08/2021 Bilateral Diagnostic Mammogram, [facility]. 06/29/2022 Bilateral MG 3D diag mammo w/cad MIKE, [facility]. Tissue Density: The breast tissue is heterogeneously dense. This may lower the sensitivity of mammography. Findings: Analyzed By CAD. Bilateral lumpectomy changes noted. No evidence of residual microcalcifications or mass. Overall Assessment: Benign, BI-RAD 2 Management: Diagnostic Mammogram of both breasts in 1 year. . Results were given to the patient verbally at the time of exam. Patient should continue monthly self-breast exams. A clinical breast exam by your physician is recommended on an annual basis. This exam should not preclude additional follow-up of suspicious palpable abnormalities. Note on Constance scores and lifetime risk: 1. A Constance score greater than 3% is considered moderate risk. If this is the case, consider specialist referral to assess eligibility for a risk reducing agent. 2. If overall lifetime risk for the development of breast cancer is 20% or higher, the patient may qualify for future screening with alternating mammogram and breast MRI. Electronically signed and approved by: Nikolai Huitron M.D. Radiologis
== END | disposition home or self-care (01) ==
LOC: RADMAMWWP 12:25
PROVIDERS: ATTEND Radiology Radiation Oncology
DX: C50.111 Malignant neoplasm of central portion of right female breast (principal); C50.411 Malignant neoplasm of upper-outer quadrant of right female breast; R92.333 Mammographic heterogeneous density, bilateral breasts; Z17.0 Estrogen receptor positive status [ER+]; Z78.0 Asymptomatic menopausal state
CPT/HCPCS: 77066; G0279; 77062

== ENCOUNTER → 2023-07-29 | Outpatient (CLI) | payer MEDICARE ==
[2023-07-29 16:10] LABS: ALT 18 U/L (8-44); AST 24 U/L (13-35); Albumin 4.1 g/dL (3.8-4.9); Albumin/Globulin Ratio 1.24 Ratio (1.60-3.17); Alkaline Phosphatase 62 U/L (41-126); BUN/Creat Ratio 25.57 Ratio (12.00-20.00); Blood Urea Nitrogen 17.9 mg/dL (9.0-27.0); Calcium 9.4 mg/dL (8.7-10.3); Carbon Dioxide 25.8 mmol/L (21.6-31.8); Chloride 103 mmol/L (96-109); Globulin 3.3 g/dL (1.6-3.3); Glucose 91 mg/dL (70-110); Potassium 4.4 mmol/L (3.5-5.5); Sodium 140 mmol/L (135-145); Total Bilirubin 0.4 mg/dL (0.3-1.2); Total Protein 7.4 g/dL (6.2-8.2)
== END | disposition home or self-care (01) ==
LOC: LABWHC1 10:21
PROVIDERS: ATTEND Internal Medicine Endocrinology, Diabetes & Metabolism
DX: E21.0 Primary hyperparathyroidism (principal); E55.9 Vitamin D deficiency, unspecified
CPT/HCPCS: 36415; 80053; 82306; 83970

== ENCOUNTER → 2024-02-17 | Outpatient (CLI) | payer MEDICARE ==
[2024-02-17 16:14] LABS: ALT 12 U/L (8-44); AST 17 U/L (13-35); Albumin 4.1 g/dL (3.8-4.9); Albumin/Globulin Ratio 1.28 Ratio (1.60-3.17); Alkaline Phosphatase 52 U/L (41-126); Blood Urea Nitrogen 21.2 mg/dL (9.0-27.0); Calcium 9.5 mg/dL (8.7-10.3); Carbon Dioxide 27.2 mmol/L (21.6-31.8); Chloride 104 mmol/L (96-109); Globulin 3.2 g/dL (1.6-3.3); Glucose 114 mg/dL (70-110); Potassium 3.5 mmol/L (3.5-5.5); Sodium 143 mmol/L (135-145); Total Bilirubin 0.5 mg/dL (0.3-1.2); Total Protein 7.3 g/dL (6.2-8.2)
== END | disposition home or self-care (01) ==
LOC: LABWHC1 08:45
PROVIDERS: ATTEND Internal Medicine Endocrinology, Diabetes & Metabolism
DX: E21.0 Primary hyperparathyroidism (principal)
CPT/HCPCS: 36415; 80053; 82306; 83970

== ENCOUNTER → 2024-02-19 | Outpatient (CLI) | payer MEDICARE ==
--- NOTE | 2024-02-19 11:35 | BD ---
EXAMINATION TYPE: Axial Bone Density DATE OF EXAM: 02/19/2024 CLINICAL HISTORY: 73 years old Female. ICD-10 CODE: M85.80 OTH DISRD OF BONE DENSITY AND STRUCTURE, UN Nuclear Medicine Study in the last 2 weeks: Barium Study in the last week: : Height: 66 Weight: 213.5 FRAX RISK QUESTIONS: Alcohol (3 or more units per day): no Family History (Parent hip fracture): no Glucocorticoids (More than 3mos): no (Ex: prednisone, prednisolone, methylprednisolone, dexamethasone, and hydrocortisone). History of Fracture in Adulthood: yes Secondary Osteoporosis: 1. Type 1 Diabetes: no 2. Hyperthyroidism: yes 3. Menopause before 45: no 4. Malnutrition: no 5. Chronic liver disease: no Rheumatoid Arthritis: no Current Tobacco Use: no RISK FACTORS HISTORY OF: Hip Fracture (Right/Left): no Spine Fracture: no History of Wrist Fracture: no Surgery to Spine/Hip(right/left)/Wrist (right/left): no MEDICATIONS: Thyroid Medications: no Osteoporosis Medications: no EXAM MEASUREMENTS: Bone mineral densitometry was performed using the [employer] System. Bone mineral density as measured about the Lumbar spine is: ----- L1-L4(G/cm2): 1.209 T Score Values are as follows: ----- L1: 0.0 ----- L2: -0.7 ----- L3: -0.1 ----- L4: 1.3 ----- L1-L4: 0.2 Z Score Values are as follows: ----- L1: 0.0 ----- L2: -0.7 ----- L3: -0.1 ----- L4: 1.3 ----- L1-L4: 0.2 Bone mineral density has: increased 7.9 % since study of: 08/17/2021 Bone mineral density about the R hip (g/cm2): 0.877 Bone mineral density about the L hip (g/cm2): 0.832 T Score values are as follows: -----R Neck: -1.3 -----L Neck: -1.7 -----R Total: -1.0 -----L Total: -1.4 Z Score values are as follows: -----R Neck: -1.0 -----L Neck: -1.5 -----R Total: -1.1 -----L Total: -1.4 Bone mineral density has: increased 9.1 % since study of: 08/17/2021 FRAX%s: The graph provided illustrates a 7.6% chance for a major osteoporotic fx and a 1.4% chance fo r the hips probability for fx in 10 years time. IMPRESSION: Osteopenia (T Score between -2.5 and -1). There is slightly increased risk of fracture and the patient may be considered for treatment. Re-Screen 2-5 years. NOTE: T-SCORE=SD OF THE YOUNG ADULT MEAN.
== END | disposition home or self-care (01) ==
LOC: RADBDWWP 09:07
PROVIDERS: ATTEND Family Medicine
DX: M85.89 Other specified disorders of bone density and structure, multiple sites (principal)
CPT/HCPCS: 77080

== ENCOUNTER → 2024-07-03 | Outpatient (CLI) | payer MEDICARE ==
--- NOTE | 2024-07-03 10:14 | MM ---
Reason for Exam: Hx of breast cancer, conservation therapy. Last screening mammogram was performed 12 month(s) ago. Patient History: Menarche at age 16. First Full-Term at age 34. Late child-bearing (after 30). Hysterectomy at age 39. Postmenopausal. Patient has history of breast feeding. Breast cancer, left, age 67. Breast cancer, right, age 72. Breast cancer, right, age 72. Estrogen for 5 years from age 39 until age 44. 08/20/2022, Lumpectomy on the Right side. 08/20/2022, Malignant MG pre op needle loc RT on the right side. 07/09/2022, Malignant MG stereo VAD BX RT on the right side. 2016, Lumpectomy on the Left side. 07/01/2017, High risk Core Biopsy on the left side. 05/22/2017, Malignant Core Biopsy on the left side. 2021, Radiation Therapy on the right side. Tissue Density: The breasts are heterogeneously dense, which may obscure small masses. Findings: Analyzed By CAD. Postoperative lumpectomy changes seen bilaterally paracentral mass. No suspicious calcifications present. Overall Assessment: Benign, BI-RAD 2 Management: Diagnostic Mammogram of both breasts in 1 year. . Results were given to the patient verbally at the time of exam. Patient should continue monthly self-breast exams. A clinical breast exam by your physician is recommended on an annual basis. This exam should not preclude additional follow-up of suspicious palpable abnormalities. Note on Constance scores and lifetime risk: 1. A Constance score greater than 3% is considered moderate risk. If this is the case, consider specialist referral to assess eligibility for a risk reducing agent. 2. If overall lifetime risk for the development of breast cancer is 20% or higher, the patient may qualify for future screening with alternating mammogram and breast MRI. [facility], , 07/03/2024 10:05 AM. Electronically signed and approved by: Nikloai Huitron M.D. Radiologis
== END | disposition home or self-care (01) ==
LOC: RADMAMWWP 09:39
PROVIDERS: ATTEND Radiology Radiation Oncology
CPT/HCPCS: 77062; 77066

== ENCOUNTER → 2025-03-16 | Outpatient (CLI) | payer MEDICARE, OTHER ==
[2025-03-16 19:56] LABS: Anion Gap 10.10 mmol/L (4.00-12.00); BUN/Creat Ratio 23.88 Ratio (12.00-20.00); Blood Urea Nitrogen 19.1 mg/dL (9.0-27.0); Calcium 9.9 mg/dL (8.7-10.3); Carbon Dioxide 28.9 mmol/L (21.6-31.8); Chloride 101 mmol/L (96-109); Cholesterol 207.00 mg/dL (0.00-200.00); Glucose 87 mg/dL (70-110); HDL Cholesterol 47.90 mg/dL (40.00-60.00); LDL Cholesterol,Calculated 142.7 mg/dL (0.0-131.0); Potassium 4.0 mmol/L (3.5-5.5); Sodium 140 mmol/L (135-145); Triglycerides 82.00 mg/dL (0.00-149.00); VLDL Calculation 16.40 mg/dL (5.00-40.00)
== END | disposition home or self-care (01) ==
LOC: LABWHC1 14:36
PROVIDERS: ATTEND Family Medicine
DX: Z13.228 Encounter for screening for other metabolic disorders (principal); I10 Essential (primary) hypertension
CPT/HCPCS: 36415; 80048; 80061; 83036